=== PATIENT | female | born 1940 | race Caucasian/White ===

== ENCOUNTER → 2024-05-31 10:51 | Outpatient (REF) | payer MEDICARE, SELFPAY | LOC: RAD 10:51 | PROVIDERS: ATTENDING PHYSICIAN Internal Medicine | DX: Z78.0 Asymptomatic menopausal state (principal) | CPT/HCPCS: 77080 ==

== ENCOUNTER → 2024-06-22 11:15 | Outpatient (REF) | payer MEDICARE, SELFPAY | LOC: WDC 11:15 | PROVIDERS: ATTENDING PHYSICIAN Internal Medicine | DX: Z12.39 Encounter for other screening for malignant neoplasm of breast (principal); Z12.31 Encounter for screening mammogram for malignant neoplasm of breast | CPT/HCPCS: 77063; 77067 ==

== ENCOUNTER 2024-07-15 14:29 | Emergency (ER) | payer MEDICARE, SELFPAY ==
[2024-07-15 14:31] VITALS: BP 198/105
--- NOTE | 2024-07-15 16:25 | ED.GENMED ---
History of Present Illness
General
Chief Complaint: Back Pain
Source: patient and spouse
Time Seen by Provider: 07/15/24 16:06
History of Present Illness
History of Present Illness:
84-year-old female with past medical history of hypertension and [id number] diabetes presenting to the emergency department for evaluation of ongoing back pain that is more of a chronic issue but over the last week pain has been more
persistent going into the right hip and down the right anterior thigh. Patient was scheduled to go to the orthopedic office yesterday and while on her way to the office was going down 2 steps into her garage when her legs gave out causing her to
fall. Patient had an x-ray done of her right hip which did not show any fracture and she has been able to ambulate since but notes that it has been more difficult due to the pain. Patient has known herniated disks and spinal stenosis. She was
able to schedule an MRI but not until August 11. Patient came to the ER today stating she is just hoping for some relief of the pain. She was told to only take Tylenol. She was also given a prescription for Voltaren gel. Patient does note that
she got some type of injection yesterday but is not sure exactly what the injection was. Patient is otherwise denying any fevers, bowel or urinary incontinence, saddle anesthesia, focal weakness or numbness, long-term corticosteroid use.
Past History
Past History
ED Past Medical History: HTN and NIDDM
Social History
Tobacco: Non-smoker
Alcohol: None
Drug: None
Personal:
Living: with family
Review of Systems
Review of Systems
All Other Systems: ROS reviewed and negative except as documented in HPI and ROS
Phy Exam
Physical Exam
Physical Exam:
GENERAL: Alert , in no apparent distress at rest but does appear uncomfortable with movement
EYE: clear conjunctiva b/l
NECK: Supple
ENT: mmm.
BACK: limited range of motion 2/2 pain, right paralumbar ttp radiating into right lateral hip, no midline bony tenderness, no rashes
NEUROLOGICAL: Alert and oriented, no focal neuro deficits. sensation grossly intact and equal to light touch bilateral lower extremities. (-)SLR b/l
SKIN: Warm and dry, skin intact.
MUSCULOSKELETAL: No edema, well perfused. EHL intact bilaterally
PSYCH: Normal and appropriate interaction.
Scores
Heart Failure Risk
Heart Failure Risk Score: Not Applicable
Heart Score for Chest Pain Patients
STEMI patient?: Not applicable
Withdrawal Assessment of Alcohol
Withdrawal Assessment Completed?: Not applicable
Course
Orders/Labs/Results
Orders:
Orders
07/15/24 16:23
Dexamethasone Sod Phosphate [Decadron] 10 mg IM NOW STA
Lidocaine [Lidocaine 4% Patch] 1 patch TOPICAL NOW STA
Apply Lidocaine patch(s) to:: right lower back
Naproxen [Naprosyn] 500 mg PO NOW STA
Vital Signs
Initial and Last Documented VS:
Initial Vital Signs
Temp Pulse Resp BP Pulse Ox
98.5 F 104 18 198/105 97
07/15/24 14:31 07/15/24 14:31 07/15/24 14:31 07/15/24 14:31 07/15/24 14:31
Last Documented Vital Signs
Temp Pulse Resp BP Pulse Ox
98.5 F 104 18 198/105 97
07/15/24 14:31 07/15/24 14:31 07/15/24 14:31 07/15/24 14:31 07/15/24 14:31
MDM/Problems Addressed
Differential Diagnosis Includes:
disc herniation, nerve impingement, spinal stenosis, no concern for hip/pelvic fracture
MDM/Problems Addressed:
84-year-old female presenting to the emergency department for ongoing lower back pain, over the last week pain now worse radiating into the right buttock, hip and thigh. Saw Ortho yesterday and had some form of an injection but patient without any
relief. Has been using Tylenol without any relief. Patient stating she came to the ER today for some form of pain relief. Has MRI scheduled for August 11. Explained unable to obtain MRI here. Discussed treatment options including
anti-inflammatories, steroid, topical agents. Given her age I advised against any muscle relaxants or opiates. Patient in agreement with this. We also discussed the possibility of transient hyperglycemia with the steroids and patient is
understanding of this risk. She would like to trial the anti-inflammatory and steroid taper. Informed patient she would not be able to use the Voltaren gel with naproxen. Will provide patient with information for pain management. Aware of return
precautions to ER. Will also provide patient with walker to help with ambulation
Chronic conditions affecting care: DM
*Pulse Oximetry
Patient hypoxic: no
*Critical Care Note
Total Time (30-74mins, 75-104mins- exclusive of procedures): Not Applicable
Data Reviewed
Review of Other/Old Records Reveals: Radiology Studies (Lumbar spine MRI from June 2022 shows 4 mm grade 1 anterolisthesis of L4 on L5. Mild central canal stenosis. 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 There is L5 nerve root
impingement. Disc extrusion at L2/L3 and disc bulge in the same area)
Source: patient
Patient Management
Social determinants of health affecting care: Strong social support and Other (good outpatient follow up)
ED Attending Note
-
Portions of this chart may have been created with voice recognition software.� Occasional wrong word or��sound alike� substitutions may have occurred due to the inherent limitations of voice recognition software.
Discharge Plan
Departure
Patient Disposition: Home (Routine Discharge)
Date of Disposition: 07/15/24
Time of Disposition: 16:25
Patient with high blood pressure during this ER visit?: Yes
Discharge Problem:
Dorsalgia of lumbosacral region
Instructions: Low Back Pain (DC)
Prescriptions:
New
methylprednisolone [Medrol (Lavell)] 4 mg tablets,dose pack
4 mg PO DIRECTED Qty: 21 0RF
naproxen 500 mg tablet
500 mg PO BID 5 Days Qty: 10 0RF
Referrals:
Matt Ladd MD [Active] - (Pain Management)
Interventions
Interventions:
*Risk Screen - Suicide Last Done: 07/15/24 14:30
*General Assessment Last Done: 07/15/24 14:31
*Neglect/Abuse Screening Last Done: 07/15/24 14:31
Discharge Date and Time
Print Language: BELARUSIAN
[2024-07-15] MEDS: DECADRON 10 MG IM (16:38)
[2024-07-15] MEDS: LIDOCAINE 4% PATCH 1 PATCH TOPICAL (16:38)
[2024-07-15] MEDS: NAPROSYN 500 MG PO (16:41)
[2024-07-15 17:07] VITALS: BP 148/68
== END 2024-07-15 17:08 | disposition home or self-care (01) ==
LOC: EMR 14:29
PROVIDERS: EMERGENCY PHYSICIAN Emergency Medicine; FAMILY PHYSICIAN Internal Medicine
DX: M54.50 Low back pain, unspecified (principal); M25.551 Pain in right hip; M79.651 Pain in right thigh; R26.2 Difficulty in walking, not elsewhere classified; W10.9XXA Fall (on) (from) unspecified stairs and steps, initial encounter; Y92.008 Other place in unspecified non-institutional (private) residence as the place of occurrence of the external cause; E11.9 Type 2 diabetes mellitus without complications; I10 Essential (primary) hypertension; M48.00 Spinal stenosis, site unspecified; M51.25 Other intervertebral disc displacement, thoracolumbar region; M51.37 Other intervertebral disc degeneration, lumbosacral region; M51.26 Other intervertebral disc displacement, lumbar region; Z88.3 Allergy status to other anti-infective agents; Z88.0 Allergy status to penicillin
CPT/HCPCS: 99284; 96372

== ENCOUNTER 2024-11-01 10:56 | Outpatient (RCR) | payer MEDICARE, SELFPAY | END 2024-11-01 23:59 | disposition home or self-care (01) | LOC: RPT 10:56 | PROVIDERS: ATTENDING PHYSICIAN Physician Assistant Surgical; FAMILY PHYSICIAN Internal Medicine | DX: M54.41 Lumbago with sciatica, right side (principal); R53.1 Weakness; G89.29 Other chronic pain | CPT/HCPCS: 97010; 97110; 97162; 97535 ==

== ENCOUNTER 2024-12-02 12:56 | Outpatient (RCR) | payer MEDICARE, SELFPAY | END 2024-12-02 23:59 | disposition home or self-care (01) | LOC: RPT 12:56 | PROVIDERS: ATTENDING PHYSICIAN Physician Assistant Surgical; FAMILY PHYSICIAN Internal Medicine | DX: M54.41 Lumbago with sciatica, right side (principal); R53.1 Weakness; G89.29 Other chronic pain; R26.89 Other abnormalities of gait and mobility | CPT/HCPCS: 97010; 97110; 97535 ==

== ENCOUNTER 2024-12-06 10:51 | Outpatient (RCR) | payer MEDICARE, SELFPAY | END 2024-12-07 06:43 | disposition home or self-care (01) | LOC: RPT 10:51 | PROVIDERS: ATTENDING PHYSICIAN Physician Assistant Surgical; FAMILY PHYSICIAN Internal Medicine | DX: M54.41 Lumbago with sciatica, right side (principal); R53.1 Weakness; G89.29 Other chronic pain | CPT/HCPCS: 97010; 97110 ==

== ENCOUNTER 2025-01-25 10:52 | Outpatient (RCR) | payer MEDICARE, SELFPAY | END 2025-01-25 23:59 | disposition home or self-care (01) | LOC: RPT 10:52 | PROVIDERS: ATTENDING PHYSICIAN Internal Medicine | DX: I89.0 Lymphedema, not elsewhere classified (principal); Z73.6 Limitation of activities due to disability | CPT/HCPCS: 97140; 97163; 97530 ==

== ENCOUNTER → 2025-07-22 09:56 | Outpatient (REF) | payer MEDICARE, SELFPAY | LOC: WDC 09:56 | PROVIDERS: ATTENDING PHYSICIAN Internal Medicine | DX: Z12.31 Encounter for screening mammogram for malignant neoplasm of breast (principal) | CPT/HCPCS: 77063; 77067 ==